=== PATIENT | male | born 1995 ===

== ENCOUNTER 2017-03-17 18:17 | Emergency (ER) | payer OTHER ==
[2017-03-17 18:30] VITALS: BMI 24.4
[2017-03-17 18:32] VITALS: RESP 16; TEMP 98.8
[2017-03-17] MEDS ORDERED: Sodium Chloride 0.9% 1,000 ML IV STA ×2 (19:15→19:30)
[2017-03-17 19:59] LABS: ADD MANUAL DIFF? NO
[2017-03-17 20:16] LABS: ALB/GLOB RATIO 1.4 (1.1-1.8); ALKALINE PHOSPHATASE 72 U/L (38-133); ALT/SGPT 35 U/L (7-56); AST/SGOT 30 U/L (15-59); BLOOD UREA NITROGEN 19 mg/dL (7-21); CALCIUM 8.8 mg/dL (8.4-10.5); CARBON DIOXIDE 26 mmol/L (21-33); CHLORIDE 99 mmol/L (98-107); GFR AFRICAN-AMERICAN > 60; GLUCOSE,RANDOM 89 mg/dL (70-110); LIPASE 44 U/L (23-300); POTASSIUM 3.9 mmol/L (3.6-5.0); SODIUM 137 mmol/L (132-148); TOTAL PROTEIN 7.6 g/dL (5.8-8.3)
[2017-03-17 20:21] LABS: BASO # 0.01 K/mm3 (0.0-2.0); BASO % 0.1 % (0.0-3.0); EOS # 0.1 (0.0-0.7); GRAN # 6.54 (1.4-6.5); GRAN % 85.8 % (50.0-68.0); HEMATOCRIT 44.5 % (42.0-52.0); LYMPH # 0.6 (1.2-3.4); LYMPH % 7.9 % (22.0-35.0); MEAN CELL VOLUME 86.4 fL (80.0-105.0); MEAN CORPUSCULAR HEMOGLOBIN 29.7 pg (25.0-35.0); MEAN CORPUSCULAR HGB CONC 34.4 g/dl (31.0-37.0); MEAN PLATELET VOLUME 11.1 fl (7.0-11.0); MONO # 0.4 (0.1-0.6); MONO % 5.2 % (1.0-6.0); PLATELET COUNT 233 10^3/uL (120.0-450.0); WHITE BLOOD COUNT 7.6 10^3/ul (4.5-11.0)
--- NOTE | 2017-03-17 21:40 | ED PDOC ---
Arrival/HPI - General Chief Complaint: GI Problem Time Seen by Provider: 03/17/17 19:15 Historian: Patient - History of Present Illness Narrative History of Present Illness (Text): 03/17/17 21:38 21 year old male presents with nausea and multiple episodes of vomiting since this morning. Patient reports 3 episodes of non-bilious, non-bloody vomiting that started after eating a calzone. Prior to eating the calzone, he states he had no symptoms. Patient reports throughout the day, he has only been able to have sips of water. Denies fever or abdominal pain. Time/Duration: 24 hours Symptom Onset: Sudden Symptom Course: Unchanged Associated Symptoms (Text): None Past Medical History - Provider Review Nursing Documentation Reviewed: Yes - Psychiatric Hx Substance Use: No Family/Social History - Physician Review Nursing Documentation Reviewed: Yes Family/Social History: Unknown Family HX Smoking Status: Never Smoked Hx Alcohol Use: Yes Frequency of alcohol use: Socially Hx Substance Use: No Allergies/Home Meds Allergies/Adverse Reactions: Allergies No Known Allergies Allergy (Verified 03/17/17 18:30) Home Medications: Home Meds Medication Instructions Recorded Confirmed No Known Home Med 03/17/17 03/17/17 Review of Systems - Physician Review All systems were reviewed & negative as marked: Yes - Review of Systems Constitutional: absent: Fevers Gastrointestinal: Nausea, Vomiting. absent: Abdominal Pain Neurological: absent: Dizziness Physical Exam Vital Signs Reviewed: Yes Vital Signs Temp Pulse Resp BP Pulse Ox 03/17/17 21:59 90 16 121/73 98 03/17/17 18:30 98.8 F 99 H 16 116/73 97 Temperature: Afebrile Blood Pressure: Normal Pulse: Regular Respiratory Rate: Normal Appearance: Positive for: Well-Appearing, Non-Toxic, Comfortable Pain Distress: None Mental Status: Positive for: Alert and Oriented X 3 - Systems Exam Head: Present: Atraumatic, Normocephalic Pupils: Present: PERRL Extroacular Muscles: Present: EOMI Conjunctiva: Present: Normal Mouth: Present: Dry (Slightly) Neck: Present: Normal Range of Motion Respiratory/Chest: Present: Clear to Auscultation, Good Air Exchange. No: Respiratory Distress, Accessory Muscle Use Cardiovascular: Present: Regular Rate and Rhythm, Normal S1, S2. No: Murmurs Abdomen: Present: Normal Bowel Sounds. No: Tenderness, Distention, Peritoneal Signs Back: Present: Normal Inspection Upper Extremity: Present: Normal Inspection. No: Cyanosis, Edema Lower Extremity: Present: Normal Inspection. No: Edema Neurological: Present: GCS=15, CN II-XII Intact, Speech Normal Skin: Present: Warm, Dry, Normal Color. No: Rashes Psychiatric: Present: Alert, Oriented x 3, Normal Insight, Normal Concentration Medical Decision Making ED Course and Treatment: Impression: 21 year old male presents with nausea and multiple episodes of vomiting since this morning. Differential Diagnosis include but are not limited to: Gastroenteritis vs gastritis Plan: -- Labs -- Reassess and disposition Progress Notes: 03/17/17 21:00 On re-evaluation, the patient feels better and is in no acute distress. Labs normal. Patient asking to be discharged. Recommended avoiding this kind of food in the future. Patient in agreement with plan to discharged home. Patient is stable for discharge. Patient was instructed to follow up with physician/clinic in 1-2 days or return if symptoms worsen or new concerning symptoms arise. - Lab Interpretations Lab Results: 03/17/17 19:50 03/17/17 19:50 Lab Results 03/17/17 19:50: Sodium 137, Potassium 3.9, Chloride 99, Carbon Dioxide 26, Anion Gap 16, BUN 19, Creatinine 1.0, Est GFR ( Amer) > 60, Est GFR (Non- Af Amer) > 60, Random Glucose 89, Calcium 8.8, Total Bilirubin 1.0, AST 30, ALT 35, Alkaline Phosphatase 72, Total Protein 7.6, Albumin 4.4, Globulin 3.1, Albumin/Globulin Ratio 1.4, Lipase 44 03/17/17 19:50: WBC 7.6, RBC 5.15, Hgb 15.3, Hct 44.5, MCV 86.4, MCH 29.7, MCHC 34.4, RDW 14.0, Plt Count 233, MPV 11.1 H, Gran % 85.8 H, Lymph % (Auto) 7.9 L, [place] % (Auto) 5.2, Eos % (Auto) 1.0 L, Baso % (Auto) 0.1, Gran # 6.54 H, Lymph # 0.6 L, [place] # 0.4, Eos # 0.1, Baso # 0.01 - Medication Orders Current Medication Orders: Discontinued Medications Famotidine (Pepcid) 20 mg IVP STAT STA Stop: 03/17/17 19:16 Last Admin: 03/17/17 19:53 Dose: 20 mg Sodium Chloride (Sodium Chloride 0.9%) 1,000 mls @ 1,000 mls/hr IV .Q1H STA Stop: 03/17/17 20:14 Last Admin: 03/17/17 19:53 Dose: 1,000 mls/hr Sodium Chloride (Sodium Chloride 0.9%) 1,000 mls @ 999 mls/hr IV .Q1H1M STA Stop: 03/17/17 20:30 Last Admin: 03/17/17 19:55 Dose: Ondansetron HCl (Zofran Inj) 4 mg IVP STAT STA Stop: 03/17/17 19:16 Last Admin: 03/17/17 19:53 Dose: 4 mg - Scribe Statement The provider has reviewed the documentation as recorded by the Skyla Dietz Provider Scribe Attestation: All medical record entries made by the Skyla were at my direction and personally dictated by me. I have reviewed the chart and agree that the record accurately reflects my personal performance of the history, physical exam, medical decision making, and the department course for this patient. I have also personally directed, reviewed, and agree with the discharge instructions and disposition. Disposition/Present on Arrival - Present on Arrival Any Indicators Present on Arrival: No History of DVT/PE: No History of Uncontrolled Diabetes: No Urinary Catheter: No History of Decub. Ulcer: No History Surgical Site Infection Following: None - Disposition Have Diagnosis and Disposition been Completed?: Yes Diagnosis: Gastritis Disposition: HOME/ ROUTINE Disposition Time: 21:00 Condition: IMPROVED Discharge Instructions (ExitCare): Gastritis (ED) Additional Instructions: Thank you for letting us take care of you today. Your provider was Dr. Hernandez. You were treated for gastritis. The emergency medical care you received today was directed at your acute symptoms. If you were prescribed any medication, please fill it and take as directed. It may take several days for your symptoms to resolve. Return to the Emergency Department if your symptoms worsen, do not improve, or if you have any other problems. Please contact your doctor or call one of the physicians/clinics you have been referred to that are listed on the Patient Visit Information form that is included in your discharge packet. Bring any paperwork you were given at discharge with you along with any medications you are taking to your follow up visit. Our treatment cannot replace ongoing medical care by a primary care provider (PCP) outside of the emergency department. Thank you for allowing the [facility] team to be part of your care today. Follow up with your doctor as needed. Referrals: Maulik Moyer MD [Primary Care Provider] - Follow up with primary
[2017-03-17 22:00] VITALS: BP 121/73; PULSE 90; O2SAT 98
== END 2017-03-17 21:59 | disposition home or self-care (01) ==
LOC: ED 18:17 → MERGE 18:17 → ED 21:59
DX: K29.70 Gastritis, unspecified, without bleeding (principal)
CPT/HCPCS: 80053; 83690; 85025; 96374; 96375; 99283; J2405; J7040